=== PATIENT | male | born 1975 | race Caucasian/White ===

== ENCOUNTER 2016-11-17 16:37 | Emergency (ER) | payer MEDICARE | END 2016-11-17 19:40 | disposition home or self-care (01) | LOC: ER 16:37 | DX: M54.2 Cervicalgia (principal); F17.210 Nicotine dependence, cigarettes, uncomplicated; Z79.899 Other long term (current) drug therapy; Z79.1 Long term (current) use of non-steroidal anti-inflammatories (NSAID) | CPT/HCPCS: 72125; 96372; 99283; 99283-25 ==